=== PATIENT | male | born 1965 | race Caucasian/White ===

== ENCOUNTER 2018-04-03 04:18 | Emergency (ER) | payer MEDICAID ==
[~2018-04-03] VITALS: Ht 170.2 cm; Wt 98.9 kg
[2018-04-03 04:33] VITALS: BP 151/92
--- NOTE | 2018-04-03 04:33 | NUR ---
ED Nurse Note: Pt arrived ED from home, c/o rashes on his forehead and right rye area, with redness and swollen for few days. Pt is A/OX4. Vital signs stable at this time, waitng for orders.
--- NOTE | 2018-04-03 04:59 | Emergency Room Report ---
History of Present Illness General Chief Complaint: Skin Rash/Abscess Source: Patient Present Illness HPI Is a 52-year-old male with history high blood pressure. He presents with a rash to the forehead. Onset for last 2 days. Initially his small but now it cover the right mid forehead. No eye involvement. He does have swelling to the eyelids. No nausea no vomiting. No trauma. Denies any other complaint. burning sensation. Allergies: Coded Allergies: No Known Allergies (Unverified , 04/03/18) Patient History Past Medical History: see triage record, old chart reviewed, HTN Past Surgical History: none Pertinent Family History: none Social History: Denies: smoking Immunizations: other Reviewed Nursing Documentation: PMH: Agreed; PSxH: Agreed Nursing Documentation-PMH Hx Cardiac Problems: No Hx Hypertension: Yes Hx Pacemaker: No Hx Asthma: No Hx COPD: No Hx Diabetes: No Hx Cancer: No Hx Gastrointestinal Problems: No Hx Dialysis: No History Of Psychiatric Problem: No Hx Neurological Problems: No Hx Cerebrovascular Accident: No Hx Seizures: No Review of Systems Eye: Denies: eye pain, blurred vision ENT: Denies: ear pain, nose congestion, throat swelling Respiratory: Denies: cough, shortness of breath Cardiovascular: Denies: chest pain, palpitations Gastrointestinal: Denies: abdominal pain, diarrhea, nausea, vomiting Musculoskeletal: Denies: back pain, joint pain Skin: Reports: rash Neurological: Denies: headache, numbness Endocrine: Denies: increased thirst, increased urine Hematologic/Lymphatic: Denies: easy bruising All Other Systems: negative except mentioned in HPI Physical Exam Vital Signs Date Time Temp Pulse Resp B/P (MAP) Pulse Ox O2 Delivery O2 Flow Rate FiO2 04/03/18 04:22 98.6 86 16 173/99 96 Room Air vitals with high blood pressure Sp02 EP Interpretation: reviewed, normal General Appearance: well appearing, no apparent distress, alert Head: normocephalic, atraumatic Eyes: bilateral eye PERRL, bilateral eye EOMI ENT: hearing grossly normal, normal pharynx Neck: full range of motion, supple, no meningismus Respiratory: chest non-tender, lungs clear, normal breath sounds Cardiovascular #1: regular rate, rhythm, no murmur Gastrointestinal: normal bowel sounds, non tender, no mass, no organomegaly, no bruit, non-distended Musculoskeletal: back normal, gait/station normal, normal range of motion Neurologic: alert, oriented x3 Psychiatric: mood/affect normal Skin: warm/dry, other - Patient with zoster is to the V1 distribution on the right side. Does not involve the eye. No visual abnormality. No uptake. Medical Decision Making Diagnostic Impression: Primary Impression: Herpes zoster Qualified Codes: B02.9 - Zoster without complications ER Course Patient with a herpes zoster the V1 distribution. No eye involvement. We'll discharge home. A dose of acyclovir given here. Last Vital Signs Date Time Temp Pulse Resp B/P (MAP) Pulse Ox O2 Delivery O2 Flow Rate FiO2 04/03/18 04:33 98.4 81 16 151/92 96 Room Air Status: improved Disposition: HOME, SELF-CARE Condition: Stable Scripts Ibuprofen* (MOTRIN*) 600 Mg Tablet 600 MG ORAL THREE TIMES A DAY, #30 TAB 0 Refills Prov: Mike Balderrama MD 04/03/18 Acyclovir* (ACYCLOVIR*) 400 Mg Tablet 800 MG ORAL FIVE TIMES A DAY for 7 Days, TAB Prov: Mike Balderrama MD 04/03/18 Referrals: [facility],REFERRING (PCP) Additional Instructions: Keep wound clean. Follow-up with your doctor in 7 days. Return if worse. Mike Balderrama MD Apr 03, 2018 04:59
[2018-04-03] MEDS ORDERED: valACYclovir HCL 500mg tab ORAL ONE (05:00)
[2018-04-03] MEDS ORDERED: ACYCLOVIR400 MG ORAL (05:00)
[2018-04-03] MEDS ORDERED: IBUPROFEN600 MG ORAL (05:00)
[2018-04-03 05:17] VITALS: BP 150/91
--- NOTE | 2018-04-03 05:17 | NUR ---
ED Nurse Note: Pt has seen by effie Longoria carried out. Pt is ready for discharge. D/c instruction and prescription given to Pt and verbalized understanding. ID band removed. Pt d/c from ED with steady gait. Accompanied by his family.
== END 2018-04-03 05:17 | disposition home or self-care (01) ==
LOC: EMR 04:47
DX: B02.9 Zoster without complications (principal); I10 Essential (primary) hypertension
CPT/HCPCS: 99283